=== PATIENT | male | born 1960 | race Caucasian/White ===

== ENCOUNTER 2017-10-23 14:58 | Emergency (ER) | payer OTHER ==
[2017-10-23] MEDS ORDERED: HYDROcodone/Acetaminophen 10/325 mg Tablet ONE (15:48)
[2017-10-23] MEDS ORDERED: Ibuprofen 800 MG TAB ONE (15:48)
--- NOTE | 2017-10-23 15:56 | RAD ---
LEFT HUMERUS TWO VIEWS: 10/23/17 HISTORY: Injury to left arm. There is no signs of fracture or dislocation. IMPRESSION: Negative left humerus. POS: [facility]
== END 2017-10-23 16:30 | disposition home or self-care (01) ==
LOC: ERS 14:58
DX: M79.602 Pain in left arm (principal); I10 Essential (primary) hypertension; E78.5 Hyperlipidemia, unspecified

== ENCOUNTER 2017-10-26 09:42 | Outpatient (CLI) | payer OTHER ==
--- NOTE | 2017-10-26 12:54 | MRI ---
LEFT ELBOW MRI WITHOUT IV CONTRAST: HISTORY: A 57-year-old male with left elbow pain and concern for a biceps rupture. TECHNIQUE: Multiplanar, multisequence MRI examination of the elbow demonstrates very significant subcutaneous fa t stranding and swelling. There is a complete, severely retracted tear of the distal bicipital tendo n, with approximately 6 cm of retraction. The UCL and lateral collateral ligament complex regions ar e unremarkable. The common flexor and extensor tendon insertion regions are unremarkable. No eviden ce for abnormal marrow signal. IMPRESSION: Complete retracted distal bicipital tendon tear. POS: [facility]
== END 2017-10-26 09:43 | disposition home or self-care (01) ==
LOC: MRI 09:42
PROVIDERS: ATTEND Orthopaedic Surgery
DX: S46.212A Strain of muscle, fascia and tendon of other parts of biceps, left arm, initial encounter (principal)

== ENCOUNTER 2017-11-02 10:16 | Outpatient (CLI) | payer OTHER ==
[2017-11-02 12:23] LABS: Hematocrit 49.6 % (42.0-52.0); Mean Platelet Volume 6.5 fL (7.4-10.4); Red Blood Cell (RBC) Count 5.32 mill/uL (4.70-6.10); White Blood Cell (WBC) Count 8.8 thou/uL (4.8-10.8)
[2017-11-02 12:32] LABS: Bilirubin Negative (Negative); Blood, Urine Negative (Negative); Glucose, Urine (Dipstick) Negative (Negative); Ketone, Urine Negative (Negative); Nitrite Negative (Negative); Protein, Urine (Dipstick) Negative (Neg-Trace)
[2017-11-02 12:39] LABS: Bacteria/HPF None Seen HPF (None Seen); Hyaline Casts/LPF 0-3 HYALINE CAST LPF (0-3 Hyaline); RBC/HPF 0-3 HPF (0-3); Squamous Epithelial None Seen HPF (0-3); WBC/HPF None Seen HPF (0-3)
== END 2017-11-02 10:17 | disposition home or self-care (01) ==
LOC: LABBT 10:16
PROVIDERS: ATTEND Orthopaedic Surgery
DX: Z01.812 Encounter for preprocedural laboratory examination (principal); S46.212A Strain of muscle, fascia and tendon of other parts of biceps, left arm, initial encounter
CPT/HCPCS: 81001; 85027; 85730; 93005; 93010

== ENCOUNTER 2017-11-04 08:28 | Day surgery (SDC) | payer OTHER ==
[2017-11-02 11:06] VITALS: BMI 34.7
[2017-11-04] MEDS ORDERED: CEFAZOLIN/Water 2 GM/20 ML SYRINGE ONE (10:07)
[2017-11-04] MEDS ORDERED: Ropivacaine 0.2% HCl/PF 20 ML ONE (10:28)
[2017-11-04] MEDS ORDERED: Fentanyl 100 MCG/2 ML VIAL ONE (10:28)
[2017-11-04] MEDS ORDERED: Midazolam HCl 2 mg/2 ml Vial ONE (10:28)
[2017-11-04] MEDS ORDERED: Ropivacaine 0.2% 550 ML 550 ML NERVE BLCK SCH (11:50)
[2017-11-04] MEDS ORDERED: traMADol HCl 50 MG TAB PO PRN ×2 (11:50)
[2017-11-04] MEDS ORDERED: Ketorolac Tromethamine 30 MG/ML VIAL IVP PRN (11:50)
[2017-11-04] MEDS ORDERED: Promethazine HCl 25 MG/ML VIAL IM PRN (11:50)
[2017-11-04] MEDS ORDERED: Zolpidem Tartrate 5 MG TAB PO PRN (11:50)
[2017-11-04] MEDS ORDERED: Ondansetron HCl/PF 4 MG/2 ML Vial IVP PRN (11:50)
[2017-11-04] MEDS ORDERED: HYDROcodone/Acetaminophen 5/325 mg Tablet PO PRN ×2 (11:50)
[2017-11-04] MEDS ORDERED: Fentanyl 100 MCG/2 ML VIAL IV PRN (11:51)
--- NOTE | 2017-11-04 13:56 | OP ---
DATE OF PROCEDURE: 11/04/2017 PREOPERATIVE DIAGNOSIS: Left distal biceps rupture. POSTOPERATIVE DIAGNOSIS: Left distal biceps rupture. PROCEDURE PERFORMED: Left distal biceps repair. STAFF: Dr. Tarun Cast JIGSAWYER: FALGUNI Foote ANESTHESIA: Martell Casillas. Patient received an LMA with a supraclavicular block. ESTIMATED BLOOD LOSS: 30 mL. TOURNIQUET TIME: 47 minutes. ANTIBIOTICS: Ancef 2 gram. IMPLANTS: System was the Arthrex distal biceps tendon repair with TightRope. COMPLICATIONS: None. HISTORY OF PRESENT ILLNESS: Mr. Dudley is a 57-year-old male who presented to me on the , patient had ruptured his biceps on the 2nd. The patient had immediate pain. He had MRI evidence showing th e patient had a rupture of his distal biceps proximal migration. I discussed with patient the risks and benefits of a left distal biceps repair to include pain, scar, bleeding, infection, damage to vit al structures, decreased range of motion or strength, fracture, damage to posterior interosseous nerv es, continued pain and despite surgical intervention, failure of repair. The patient understood thes e risks and benefits and elected to proceed. PROCEDURE NOTE: Timeout was performed designating the patient's left upper extremity as the operativ e site. Based on sight, consents, markings after completion of timeout, the patient's left upper ext remity was prepped and draped in sterile fashion. Tourniquet was brought up and was left up for a to linda of 47 minutes. I used the volar approach to enter into the cubital fossa just the distal limb co cristina down just over the patient's teres and the brachialis. The patient already had some blunt disse ction and I found them distally. I was able to find the footprint of the rupture, this was approxima chelita, I found the bicipital aponeurosis, able to follow it down. We used that as our place for our tu nn. We found the stump. We trimmed it down to 8 mm, we used our 8 mm size distally. We used our #2 FiberWire with a Toñito needle. We used it to pass 6 passes through the tendon, used to pass the distal extent with traction on the arm. We then moved to our tuberosity came down with cautery just right on the tuberosity bluntly dissected off the soft tissue, put Homans' then to expose the bi cipital tuberosity, looked under fluoroscopic spot view to ensure that we were in the right position. We then drilled a hole, second hole through the tuberosity with the patient in hypersupinated posit ion. We then had passed our TightRope with our sutures back through our TightRope and then passed th e TightRope to the other side of the bone and pulled the tendon into the defect at a 45 degree flexed position. Assuring we had pulled it and tightly pulled it one more time taut. We placed a free nee dle, passed it through the tendon and then pulled again and stitched into place. We had a nice fixed repair. I was overall happy with the placement, we then washed, removed any potential bone debris. We closed with 0 2-0 Quill, and 2-0 Stratafix and glue. The patient will be placed into a sling postop. He will begin elbow, wrist range of motion. I will see the patient back in clinic in 2 weeks.
[2017-11-04] MEDS ORDERED: Propofol 200 MG/20 ML VIAL ONE (15:36)
[2017-11-04] MEDS ORDERED: Lidocaine 1% PF 5 ML VIAL ONE (15:36)
== END 2017-11-04 15:38 | disposition home or self-care (01) ==
LOC: SDC 08:28
PROVIDERS: ATTEND Orthopaedic Surgery
PROC: 0LM40ZZ Reattachment of Left Upper Arm Tendon, Open Approach (ICD-10-PCS; principal; 2017-11-04)
DX: S46.212A Strain of muscle, fascia and tendon of other parts of biceps, left arm, initial encounter (principal); N52.9 Male erectile dysfunction, unspecified; B18.1 Chronic viral hepatitis B without delta-agent; K76.0 Fatty (change of) liver, not elsewhere classified; H90.2 Conductive hearing loss, unspecified; I10 Essential (primary) hypertension; E78.5 Hyperlipidemia, unspecified; Z80.51 Family history of malignant neoplasm of kidney; Z85.46 Personal history of malignant neoplasm of prostate; Z79.51 Long term (current) use of inhaled steroids; Z79.899 Other long term (current) drug therapy; Z98.1 Arthrodesis status; Z98.890 Other specified postprocedural states
CPT/HCPCS: 76001; A4306; C1713; J2001; J2250; J2704; J2795; J3010

== ENCOUNTER 2019-12-18 12:04 | Outpatient (CLI) | payer BC ==
--- NOTE | 2019-12-18 12:33 | ULT ---
EXAM: Left lower extremity venous Doppler HISTORY: Left lower extremity edema/swelling. FINDINGS: Grayscale, color-flow, Doppler evaluation, spectral analysis of the left lower extremity venous struc tures is performed with 2-D imaging. The left common femoral, superficial femoral, popliteal, posterior tibial, proximal greater saphenous and profunda femoral veins are imaged. There is normal luminal compressibility, flow, and augmentation in the visualized deep venous structu res of the left lower extremity. Minimal subcutaneous edema is seen in the distal left lower extremity. IMPRESSION: No evidence of a deep vein thrombosis in the visualized deep venous structures left lower extremity.
== END 2019-12-18 12:05 | disposition home or self-care (01) ==
LOC: ULT 12:04
PROVIDERS: ATTEND Orthopaedic Surgery
DX: M79.662 Pain in left lower leg (principal); M25.562 Pain in left knee